=== PATIENT | female | born 1965 | race Caucasian/White ===

== ENCOUNTER → 2017-06-06 | Outpatient (CLI) | payer OTHER ==
[~2017-06-06] MED LIST: ADVAIR 250/501 DISK IH; MOTRIN600 MG PO
== END | disposition home or self-care (01) ==
LOC: NUC 07:50
DX: R94.6 Abnormal results of thyroid function studies (principal)
CPT/HCPCS: 78014; 78999

== ENCOUNTER → 2017-06-20 | Outpatient (CLI) | payer OTHER | END | disposition home or self-care (01) | LOC: NUC 09:00 | DX: E05.20 Thyrotoxicosis with toxic multinodular goiter without thyrotoxic crisis or storm (principal) | CPT/HCPCS: 79005; A9517 ==